=== PATIENT | female | born 1985 | race Two or more races ===

== ENCOUNTER 2019-08-13 07:56 | Emergency (ER) | payer SELFPAY ==
[~2019-08-13] VITALS: Ht 162.6 cm; Wt 45.4 kg
[2019-08-13 08:45] VITALS: BP 125/88
[2019-08-13] MEDS ORDERED: SODIUM CHLORIDE 0.9% 1,000 ML IVB ONE (10:01)
[2019-08-13] MEDS ORDERED: SODIUM CHLORIDE 0.9% 1,000 ML IV ONE (10:01)
== END 2019-08-13 10:42 | disposition left against medical advice (07) ==
LOC: EDBD → ER 07:56
DX: R10.9 Unspecified abdominal pain (principal)

== ENCOUNTER 2019-08-17 13:30 | Emergency (ER) | payer SELFPAY ==
[~2019-08-17] VITALS: Ht 162.6 cm; Wt 49.0 kg
[2019-08-17] MEDS ORDERED: IBUPROFEN 800 MG TAB PO ONE (14:00)
[2019-08-17 17:30] VITALS: BP 128/75
== END 2019-08-17 18:15 | disposition home or self-care (01) ==
LOC: ER 13:30
DX: J02.0 Streptococcal pharyngitis (principal); R00.0 Tachycardia, unspecified; Z59.0 Homelessness
CPT/HCPCS: 71045; 87804; 87880

== ENCOUNTER → 2019-08-21 | Emergency (ER) | payer SELFPAY ==
[~2019-08-21] VITALS: Ht 154.9 cm; Wt 63.5 kg
[2019-08-21 10:40] VITALS: BP 94/71
== END | disposition home or self-care (01) ==
LOC: EDUNIT# 10:16 → ER 10:23 → EDBD 10:23
DX: R50.9 Fever, unspecified (principal); Z59.0 Homelessness